=== PATIENT | male | born 1990 | race Asian ===

== ENCOUNTER 2017-11-20 15:29 | Emergency (ER) | payer MEDICAID ==
[~2017-11-20] VITALS: Ht 185.4 cm; Wt 77.1 kg
[2017-11-20] MEDS ORDERED: NKM (15:40)
[2017-11-20] MEDS ORDERED: Ketorolac 30mg Inj IV ONE (16:00)
--- NOTE | 2017-11-20 16:16 | Emergency Room Report ---
History of Present Illness General Chief Complaint: Male Urogenital Problems Source: Patient, Significant Other Present Illness HPI Patient presents with right testicular pain. There is also swelling and hematospermia. This began last Wednesday. He denies any trauma. There's been no unusual sexual activity. He had a fever 2 nights ago which was not documented however his girlfriend says he was quite hot. The pain is rated a 6/ 10 and worse when he standing. He is also taken Tylenol and icing the area with some help in decreasing the pain. He denies dysuria, abdominal pain, rectal pain, nausea, vomiting, diarrhea or change in bowel habits. There is no rash. No headache, stress. Allergies: Uncoded Allergies: PEANUTS (Allergy, Unknown, 11/20/17) Patient History Past Medical History: see triage record Social History: Denies: smoking, alcohol use Social History Narrative stable relationship - recent move from [place] Reviewed Nursing Documentation: PMH: Agreed; PSxH: Agreed Nursing Documentation-PMH Past Medical History: No Stated History Review of Systems All Other Systems: negative except mentioned in HPI Physical Exam Vital Signs Date Time Temp Pulse Resp B/P (MAP) Pulse Ox O2 Delivery O2 Flow Rate FiO2 11/20/17 15:40 98.4 83 14 120/69 99 Room Air 98.4 Sp02 EP Interpretation: reviewed, normal General Appearance: well appearing, no apparent distress, GCS 15 Head: normocephalic Eyes: bilateral eye normal inspection, bilateral eye PERRL ENT: moist mucus membranes Neck: supple Respiratory: lungs clear, normal breath sounds Cardiovascular #1: regular rate, rhythm Cardiovascular #2: 2+ radial (R) Gastrointestinal: normal inspection, normal bowel sounds, non tender, no mass, non-distended, scaphoid Genitourinary: penis normal, other - swelling R epidydimus and tenderness Musculoskeletal: back normal, gait/station normal, normal range of motion Neurologic: alert, oriented x3 Skin: normal inspection, warm/dry Medical Decision Making Diagnostic Impression: Primary Impression: Acute epididymitis Additional Impression: Adverse reaction to NSAIDs Qualified Codes: T39.395A - Adverse effect of other nonsteroidal anti- inflammatory drugs [NSAID], initial encounter ER Course Patient presents with 4 days of right testicular pain and a history of fever. Differential includes epididymitis, orchitis, torsion, tumor amongst others. The history and physical are against torsion. Most likely he has epididymitis. Testicular ultrasound is indicated. The patient will receive IV hydration. Labs and urinalysis will be obtained. He'll be treated with Toradol for pain. Patient with salivation and nausea after Toradol. He states that he gets these symptoms after taking [id number] Advil and Aleve. Treated with Pepcid and Zofran. Benadryl added with some improvement. Tylenol given for pain. U/S with suggestion of epididymitis. Rocephin and doxy given. Improved. Discussed treatment plan and need to follow with urology. Patient stable for outpatient observation and treatment. Laboratory Tests Test 11/20/17 16:15 11/20/17 16:24 White Blood Count 11.6 K/UL (4.8-10.8) H Red Blood Count 4.54 M/UL (4.70-6.10) L Hemoglobin 14.0 G/DL (14.2-18.0) L Hematocrit 40.2 % (42.0-52.0) L Mean Corpuscular Volume 89 FL (80-99) Mean Corpuscular Hemoglobin 31.0 PG (27.0-31.0) Mean Corpuscular Hemoglobin Concent 34.9 G/DL (32.0-36.0) Red Cell Distribution Width 10.6 % (11.6-14.8) L Platelet Count 211 K/UL (150-450) Mean Platelet Volume 6.4 FL (6.5-10.1) L Neutrophils (%) (Auto) 69.8 % (45.0-75.0) Lymphocytes (%) (Auto) 12.9 % (20.0-45.0) L Monocytes (%) (Auto) 8.6 % (1.0-10.0) Eosinophils (%) (Auto) 7.7 % (0.0-3.0) H Basophils (%) (Auto) 1.0 % (0.0-2.0) Prothrombin Time 10.1 SEC (9.30-11.50) Prothrombin Time INR 1.0 (0.9-1.1) PTT 29 SEC (23-33) Sodium Level 139 MMOL/L (136-145) Potassium Level 3.7 MMOL/L (3.5-5.1) Chloride Level 102 MMOL/L (98-107) Carbon Dioxide Level 28 MMOL/L (21-32) Anion Gap 9 mmol/L (5-15) Blood Urea Nitrogen 10 mg/dL (7-18) Creatinine 0.8 MG/DL (0.55-1.30) Estimate Glomerular Filtration Rate > 60 mL/min (>60) Glucose Level 130 MG/DL (74-106) H Calcium Level 9.0 MG/DL (8.5-10.1) Total Bilirubin 0.3 MG/DL (0.2-1.0) Aspartate Amino Transferase (AST) 14 U/L (15-37) L Alanine Aminotransferase (ALT) 23 U/L (12-78) Alkaline Phosphatase 82 U/L (46-116) Total Protein 8.2 G/DL (6.4-8.2) Albumin 4.0 G/DL (3.4-5.0) Globulin 4.2 g/dL Albumin/Globulin Ratio 1.0 (1.0-2.7) Urine Color Pale yellow Urine Appearance Slightly cloudy Urine pH 7 (4.5-8.0) Urine Specific [place] 1.000 (1.005-1.035) Urine Protein Negative (NEGATIVE) Urine Glucose (UA) Negative (NEGATIVE) Urine Ketones Negative (NEGATIVE) Urine Blood 3+ (NEGATIVE) H Urine Nitrite Negative (NEGATIVE) Urine Bilirubin Negative (NEGATIVE) Urine Urobilinogen Normal MG/DL (0.0-1.0) Urine Leukocyte Esterase 3+ (NEGATIVE) H Urine RBC 5-10 /HPF (0 - 0) H Urine WBC Tntc /HPF (0 - 0) H Urine Squamous Epithelial Cells Occasional /LPF Urine Bacteria Moderate /HPF (NONE) H CT/MRI/US Diagnostic Results CT/MRI/US Diagnostic Results : Imaging Test Ordered: US Impression epididymitis Last Vital Signs Date Time Temp Pulse Resp B/P (MAP) Pulse Ox O2 Delivery O2 Flow Rate FiO2 11/20/17 20:57 98.2 68 18 118/70 100 Room Air 98.2 Status: improved Disposition: HOME, SELF-CARE Condition: Improved Scripts Tramadol Hcl* (ULTRAM*) 50 Mg Tablet 50 MG ORAL Q6H PRN for For Pain, #8 TAB 0 Refills Prov: Isrrael Mckeon M.D. 11/20/17 Doxycycline Hyclate* (VIBRAMYCIN*) 100 Mg Capsule 100 MG ORAL EVERY 12 HOURS, #14 CAP 0 Refills Prov: Isrrael Mckeon M.D. 11/20/17 Referrals: NOT CHOSEN [facility]/,REFERRING (PCP) Isrrael Mckeon M.D. Nov 20, 2017 16:16
[2017-11-20 16:25] LABS: EOSINOPHILS % (AUTO) 7.7 % (0.0-3.0); HEMATOCRIT 40.2 % (42.0-52.0); LYMPHOCYTES % (AUTO) 12.9 % (20.0-45.0); MEAN CORPUSCULAR VOLUME 89 FL (80-99); MONOCYTES % (AUTO) 8.6 % (1.0-10.0); NEUTROPHILS % (AUTO) 69.8 % (45.0-75.0); PLATELET COUNT 211 K/UL (150-450); RED BLOOD COUNT 4.54 M/UL (4.70-6.10); RED CELL DISTRIBUTION WIDTH 10.6 % (11.6-14.8); WHITE BLOOD COUNT 11.6 K/UL (4.8-10.8)
[2017-11-20 16:31] LABS: ANION GAP 9 mmol/L (5-15); BLOOD UREA NITROGEN 10 mg/dL (7-18); CARBON DIOXIDE 28 MMOL/L (21-32); CHLORIDE 102 MMOL/L (98-107); CREATININE 0.8 MG/DL (0.55-1.30); POTASSIUM 3.7 MMOL/L (3.5-5.1); SODIUM 139 MMOL/L (136-145)
[2017-11-20 16:34] LABS: APPEARANCE,URINE SLIGHTLY CLOUDY; BILIRUBIN, URINE NEGATIVE (NEGATIVE); COLOR,URINE PALE YELLOW; GLUCOSE, URINE (UA) NEGATIVE (NEGATIVE); KETONES,URINE NEGATIVE (NEGATIVE); LEUKOCYTE ESTERASE ,URINE 3+ (NEGATIVE); NITRITE,URINE NEGATIVE (NEGATIVE); PH,URINE 7 (4.5-8.0); PROTEIN,URINE NEGATIVE (NEGATIVE); UROBILINOGEN,URINE NORMAL MG/DL (0.0-1.0)
[2017-11-20 16:35] LABS: ALANINE AMINOTRANSFERASE 23 U/L (12-78); ALKALINE PHOSPHATASE 82 U/L (46-116); ASPARTATE AMINO TRANSFERASE 14 U/L (15-37); BILIRUBIN,TOTAL 0.3 MG/DL (0.2-1.0)
[2017-11-20 16:56] VITALS: BP 124/72
[2017-11-20] MEDS ORDERED: cefTRIAXone 1 GM in NS 55 ML IVPB ONE (17:45)
[2017-11-20] MEDS ORDERED: DiphenhydrAMINE 50mg/ml Inj IVP ONE (18:00)
[2017-11-20] MEDS ORDERED: Acetaminophen 500mg (ES) tab ORAL ONE (18:45)
[2017-11-20 19:52] VITALS: BP 118/68
[2017-11-20] MEDS ORDERED: TRAMADOL HCL50 MG ORAL (20:38)
[2017-11-20] MEDS ORDERED: VIBRAMYCIN100 MG ORAL (20:38)
[2017-11-20 20:56] VITALS: BP 118/70
[2017-11-20 20:57] VITALS: BP 118/70
--- NOTE | 2017-11-20 22:46 | Diagnostic Imaging Report ---
EXAM: US Scrotum CLINICAL HISTORY: PAIN TECHNIQUE: Real-time ultrasound of the scrotum with color Doppler and image documentation. COMPARISON: No relevant prior studies available. FINDINGS: Right testicle: The right testicle is unremarkable and measures 3.0 x 4.0 x 2.7 cm. The right testicle demonstrates vascular flow. Left testicle: The left testicle is unremarkable and measures 2.9 x 2. 3 x 3.6 cm. The left testicle demonstrates vascular flow. Epididymides: Some increased vascularity is suspected to the right epididymis. Right epididymitis should be considered. The left epididymis is unremarkable. Scrotum: There is a small to moderate sized right-sided hydrocele. IMPRESSION: Some increased vascularity is suspected to the right epididymis. Right epididymitis should be considered.
== END 2017-11-20 20:57 | disposition home or self-care (01) ==
LOC: EMR 15:52
DX: N45.1 Epididymitis (principal); T39.395A Adverse effect of other nonsteroidal anti-inflammatory drugs [NSAID], initial encounter; Y92.019 Unspecified place in single-family (private) house as the place of occurrence of the external cause; R36.1 Hematospermia; Z91.010 Allergy to peanuts
CPT/HCPCS: 36415; 76870; 80053; 81003; 85025; 85610; 85730; 87086; 96361; 96365; 96375; 99285; J0696; J1200; J1885; J2405; 87491; 87590